=== PATIENT | male | born 1965 | race Caucasian/White ===

== ENCOUNTER 2024-04-06 17:32 | Emergency (ER) | payer MEDICARE, SELFPAY ==
[2024-04-06 17:33] VITALS: BP 147/87; PULSE 83; RESP 18; TEMP 36.4; O2SAT 95; BMI 28.8
[2024-04-06 17:34] VITALS: BP 147/87; PULSE 83; RESP 18; TEMP 36.4; O2SAT 95
[2024-04-06 19:42] VITALS: BP 147/68; PULSE 76; RESP 18; TEMP 36.6; O2SAT 97
--- NOTE | 2024-04-06 20:41 | EX.ED.VIS.EY ---
HPI History of Present Illness Chief Complaint: Eye Problem Narrative Narrative: 58-year-old male who denies significant past medical history presents with concern for orbital cellulitis according to his primary care provider. He relates history that Wednesday of last week, he thought he got bit by a spider in the forehead. There were little bumps and thoughts that turned into what he thought were fang jenkins. He had pain and swelling of his left forehead along with redness. By Wednesday, 2 days ago, he went to see his primary care provider who put him on Augmentin for facial cellulitis. This evening, he developed a pea-sized area on the side of his left eye that is raised. He denies loss of vision. No fevers or chills, no pain with eye movement. He called his primary care provider who told him to come to the emergency department with concern for orbital cellulitis. [facility] Medical History HTN (hypertension) Home Medications ?Medication ?Instructions ?Recorded ?Last Taken ?Type acyclovir 800 mg tablet 800 mg PO 5X/DAY #35 TABLETS 04/06/24 Unknown Rx Allergy/AdvReac Type Severity Reaction Status Date / Time No Known Allergies Allergy Verified 04/06/24 17:33 Social History Smoking Status: Current every day smoker tobacco type: cigarettes ROS ROS ED ROS Narrative Constitutional: No fever, no chills. HEENT: No sore throat. No neck pain. No loss of vision. No rhinorrhea. No pain with eye movement. Reported spider bite on left forehead near top of forehead near hairline. Cardiovascular: No chest pain. No palpitations. No pedal edema. Respiratory: No cough, no shortness of breath. Abdominal: No abdominal pain. No nausea. No vomiting. Genitourinary: No dysuria. No hematuria. Musculoskeletal: No myalgias. No arthralgias. Neurologic: No headaches. No dizziness. No lightheadedness. Skin: No rash. No change in color. Psychiatric: No depression. No anxiety. EXAM Physical Exam Narrative Exam Narrative: Afebrile. Vital signs noted. Nontoxic-appearing. Positive raised area with mild erythema on left forehead near hairline. PERRL, EOMI. There is a small raised area on the lateral aspect near his left eye on his jainism. No vesicles. No fluctuance. Almost the diameter of a pea. Regular rate and rhythm. Lungs clear to auscultation bilaterally. Abdomen soft nontender with normal active bowel sounds. Neurological examination nonfocal, nonlateralizing. Const Vital Signs: 04/06/24 17:33 04/06/24 17:34 04/06/24 19:42 Temperature 97.6 F L 97.6 F L 98 F Temperature Source Temporal Temporal Oral Pulse Rate 83 83 76 Respiratory Rate 18 18 18 Blood Pressure 147/87 H 147/87 H 147/68 H Blood Pressure Mean 107 107 94 Pulse Ox 95 95 97 Oxygen Delivery Method Room Air Room Air Room Air MDM MDM MDM Narrative Medical decision making narrative: Differential diagnosis does include preseptal cellulitis versus microabscess versus formation of vesicles. I do not feel that CT imaging is indicated or laboratory work. The patient has no pain with extraocular muscle movement so I have low concern for orbital cellulitis. It is a localized raised area on his left jainism. My concern is that he actually has shingles. His girlfriend does state that he had vesicles last Wednesday before the area flattened out. I will start him on acyclovir. He was told to continue and finish his prescription for Augmentin. He will follow-up with his primary care provider on Wednesday as scheduled. Return instructions to the emergency department were reviewed. Disposition is discharged home in stable condition. History & Record Review Discussion w/independent historian: Patient and Significant other Discharge Plan Triage Chief Complaint: Eye Problem ED Provider: Christopher Dave Dx/Rx/DC Orders Clinical Impression: Shingles, Cellulitis of forehead Instructions: ED Shingles (Herpes Zoster) Prescriptions: New acyclovir 800 mg tablet 800 mg PO 5X/DAY Qty: 35 0RF Primary Care Provider: SAMUEL COREY Referrals: SAMUEL COREY [Other] Activity Restrictions/Additional Instructions: Continue the rest of your antibiotics as you have already started therapy. Return with increased redness, fever, new or worsening symptoms.. Start acyclovir 800 mg 5 times daily for 1 week. You do not need steroids. Follow-up with your primary care provider as scheduled on Wednesday. Print Language: Faroese Disposition Disposition: Home, Self Care
[2024-04-06] MEDS: Acyclovir 800 MG Tablet PO (20:58)
[2024-04-06 20:59] VITALS: BP 147/68; PULSE 68; RESP 18; TEMP 36.6; O2SAT 97
== END 2024-04-06 21:00 | disposition home or self-care (01) ==
PROVIDERS: Emergency Provider Emergency Medicine; Visit Provider Emergency Medicine
DX: B02.9 Zoster without complications (principal); L03.211 Cellulitis of face; I10 Essential (primary) hypertension; F17.210 Nicotine dependence, cigarettes, uncomplicated; Z79.899 Other long term (current) drug therapy
CPT/HCPCS: 99282